=== PATIENT | female | born 1960 | race Caucasian/White ===

== ENCOUNTER 2021-07-11 20:40 | Inpatient (IN) | payer SELFPAY ==
[2021-07-11] MEDS ORDERED: Senokot S 8.6-50 MG TAB PO PRN (21:24)
[2021-07-11] MEDS ORDERED: Guaifenesin DM 100-10/5 ML UDCUP PO PRN (21:24)
[2021-07-11] MEDS ORDERED: Calcium Carbonate 500 MG ChewTAB PO PRN (21:24)
[2021-07-11] MEDS ORDERED: Acetaminophen 325 MG TAB PO PRN (21:24)
[2021-07-11] MEDS ORDERED: Ondansetron PF 4 MG/2 ML Vial IVP PRN (21:24)
[2021-07-11] MEDS ORDERED: Dextrose 5 % And 0.9 % NaCl 1,000 ML IV SCH (21:45)
[2021-07-11] MEDS: Potassium Chloride 20 MEQ TAB PO SCH (23:14)
[2021-07-12 00:39] LABS: Lactic Acid 3.1 mmol/L (0.5-2.2)
[2021-07-12] MEDS: Potassium Chloride 20 MEQ TAB PO SCH (00:47)
[2021-07-12] MEDS: Cefepime 2 GM in Sodium Chloride 0.9% 100 ML IVPB SCH ×3 (02:39→17:00)
[2021-07-12 04:08] LABS: #Neutrophils 4.7 10x3/uL (1.5-8.4); %Basophils 0.2 % (0.0-2.0); %Lymphocytes 9.1 % (18.0-47.0); %Monocytes 0.4 % (0.0-10.0); Hemoglobin 12.1 g/dL (12.0-15.5); Mean Corpuscular HGB CONC 33.8 g/dL (32.0-36.0); Mean Corpuscular Hemoglobin 32.3 pg (27.0-33.0); Mean Corpuscular Volume 95.5 fl (81.6-98.3); Platelet Count 359 10x3/uL (150-450); RBC Distribution Width 13.7 % (11.5-14.5); Red Blood Cell (RBC) Count 3.75 10x6/uL (3.90-5.03); White Blood Cell (WBC) Count 5.3 10x3/uL (3.5-10.5)
[2021-07-12 04:27] LABS: Lactic Acid 2.7 mmol/L (0.5-2.2)
[2021-07-12 04:28] LABS: ALT (SGPT) 26 U/L (8-55); AST (SGOT) 27 U/L (5-34); Albumin 3.2 g/dL (3.4-4.8); Alkaline Phosphatase 90 U/L (40-110); Anion Gap 15 mmol/L (10-20); BUN (Urea Nitrogen) 5 mg/dL (9.8-20.1); Bilirubin, Total 0.3 mg/dL (0.2-1.2); CK (CPK) 47 U/L (29-168); Calc. Creatinine Clearance 119 mL/min (70-130); Calcium 8.6 mg/dL (7.8-10.44); Carbon Dioxide 18 mmol/L (23-31); Chloride 110 mmol/L (98-107); Globulin 2.9 g/dL (2.4-3.5); Glucose 189 mg/dL (80-115); Magnesium 1.8 mg/dL (1.6-2.6); Potassium 3.4 mmol/L (3.5-5.1); Protein, Total 6.1 g/dL (5.8-8.1); Sodium 140 mmol/L (136-145)
[2021-07-12 04:46] LABS: Thyroid Stimulating Hormone 0.6935 uIU/mL (0.35-4.94)
[2021-07-12 05:38] VITALS: BMI 26.9
[2021-07-12] MEDS ORDERED: Potassium Chloride 20 MEQ TAB PO SCH (05:45)
[2021-07-12] MEDS: Sodium Chloride 0.45% 1,000 ML IV SCH ×2 (05:53→22:51)
[2021-07-12 05:54] LABS: Legionella Urinary Ag Negative (Negative); Strep pneumo Urine Ag NEGATIVE (NEGATIVE)
[2021-07-12] MEDS: Enoxaparin Sodium 40 MG/0.4 ML SYRINGE SC SCH (09:33)
[2021-07-12] MEDS: Folic Acid 1 MG TAB PO SCH (09:34)
[2021-07-12] MEDS: Famotidine/PF 20 mg/2ml Vial SLOW IVP SCH ×2 (09:34→22:51)
[2021-07-12] MEDS: Multivitamin W/ Minerals 1 TAB PO SCH (09:34)
[2021-07-12] MEDS: Thiamine 100 MG TAB PO SCH (09:34)
[2021-07-12] MEDS: Cyanocobalamin (Vitamin B-12) 1,000 MCG TAB PO SCH (09:34)
[2021-07-12] MEDS: Vancomycin HCl 1 GM in Sodium Chloride 0.9% 250 ML 250 ML IVPB SCH ×2 (13:00→23:47)
[2021-07-12 15:07] LABS: Lactic Acid 1.4 mmol/L (0.5-2.2)
[2021-07-12 15:33] LABS: HIV (1/2) Antibody/Antigen Non-Reactive (NonReactive); HIV 1/2 INDEX 0.05 S/CO (<1.00)
[2021-07-12 18:20] LABS: Cardiac Risk 3.6 (Less than 4.5)
[2021-07-12] MEDS ORDERED: Atorvastatin Calcium 40 MG TAB PO SCH (21:00)
[2021-07-13] MEDS: Ventolin HFA Inhaler 60 PUFF INHALER INH PRN ×3 (00:40→12:56)
[2021-07-13 01:01] LABS: HBCM Index 0.07 S/CO (0-0.79); HBSAg Index 0.25 S/CO (0-0.99); Hep A IgM AB Non-Reactive (NonReactive); Hep A IgM S/CO 0.09 S/CO (0-0.79); Hep B Surf Ag Non-Reactive S/CO (NonReactive); Hep C IgG Ab Non-Reactive (NonReactive); Hep C Index 0.05 S/CO (0-0.79); Hepatitis B Core IgM Abs Non-Reactive (NonReactive)
[2021-07-13] MEDS: Cefepime 2 GM in Sodium Chloride 0.9% 100 ML IVPB SCH (03:12)
[2021-07-13] MEDS ORDERED: Aspirin 81 mg Enteric Coated Tablet PO SCH (09:00)
[2021-07-13] MEDS ORDERED: FLU VACC QS2021-22(6MOS UP)/PF 60 MCG/0.5 ML SYRINGE IM ONE (09:00)
[2021-07-13] MEDS: Folic Acid 1 MG TAB PO SCH (09:12)
[2021-07-13] MEDS: Enoxaparin Sodium 40 MG/0.4 ML SYRINGE SC SCH (09:12)
[2021-07-13] MEDS: Cyanocobalamin (Vitamin B-12) 1,000 MCG TAB PO SCH (09:12)
[2021-07-13] MEDS: Famotidine/PF 20 mg/2ml Vial SLOW IVP SCH (09:12)
[2021-07-13] MEDS: Thiamine 100 MG TAB PO SCH (09:13)
[2021-07-13] MEDS: Multivitamin W/ Minerals 1 TAB PO SCH (09:13)
[2021-07-13 10:02] LABS: Vancomycin, Trough 15.7 ug/mL
[2021-07-13 15:23] VITALS: TEMP 98.8
[2021-07-13 16:08] VITALS: BP 173/94
[2021-07-14 16:03] LABS: ANA Symphony (Qualitative) Negative (Negative); ANA Symphony (Quantitative) 0.2 Ratio (< 0.7 Negative); dsDNA IgG Antibody Less than 0.5 IU/mL (<10 Negative)
== END 2021-07-13 16:50 | disposition home or self-care (01) | DRG 872 ==
LOC: CSHICU 20:40
PROVIDERS: ADMIT Family Medicine; ATTEND Internal Medicine
DX: A41.9 Sepsis, unspecified organism (principal); S22.41XA Multiple fractures of ribs, right side, initial encounter for closed fracture; J98.11 Atelectasis; E87.2 Acidosis; N39.0 Urinary tract infection, site not specified; G45.9 Transient cerebral ischemic attack, unspecified; I10 Essential (primary) hypertension; R65.20 Severe sepsis without septic shock; G62.1 Alcoholic polyneuropathy; Z20.828 Contact with and (suspected) exposure to other viral communicable diseases; E53.8 Deficiency of other specified B group vitamins; E87.6 Hypokalemia; Z91.81 History of falling
CPT/HCPCS: 36415; 70551; 71260; 80053; 80061; 80074; 80202; 82550; 82607; 82746; 83036; 83605; 83735; 84145; 84443; 85025; 85652; 86038; 86140; 86225; 87389; 87449; 87899; 93306; 94664; J0692; J1650; J3370; J3490; J7042; J7050; S0028